=== PATIENT | male | born 1975 | race Caucasian/White ===

== ENCOUNTER 2017-02-27 14:03 | Emergency (ER) | payer MEDICAID ==
[~2017-02-27] VITALS: Ht 180.3 cm; Wt 77.1 kg
[~2017-02-27 14:03] MED LIST: ALLEGRA180 MG PO; AZITHROMYCIN250 MG PO; BACTRIM DS 8001 TAB PO; IBU-6600 MG PO; IBUPROFEN800 MG PO; KEFLEX 500MG.500 MG PO; MEDROL 4MG. DOSE4 MG PO; NOMEDS XX; PREDNISONE 20MG20 MG PO; TESSALON PERLE100 MG PO; ULTRACET 325 MG1 TAB PO; ZITHROMAX Z PA250 MG PO; ZITHROMAX Z-PA250 M2 PO
--- OUTSIDE RECORDS SUMMARY | 2017-02-27 14:09 | External Medical Summary Rpt ---
Author Author , NEO LARSON Address Unknown Phone [email or web address] Care Team Providers Care Import Export Agent Name Role Phone KHANG BARROS, KHANG Unavailable Unavailable FIORELLA BESSON RADHA, BESSON Unavailable Unavailable RADHA BESSON RADHA, BESSON Unavailable Unavailable RADHA MARSHALL, MARSHALL Unavailable Unavailable [facility], Unavailable [facility]available [facility], Unavailable [facility]available [facility] Unavailable Unavailable MARIE BRIAN, Unavailable Unavailable MARIE BRIAN MARIE BRIAN, Unavailable Unavailable MARIE BRIAN FRYMAN EUG, FRYMAN Unavailable Unavailable EUG JOSE SANDRA, JOSE Unavailable Unavailable SANDRA [facility] Unavailable Unavailable INC, [facility] Unavailable Unavailable HOSPITAL, [facility] Unavailable Unavailable [facility]PITAL P, [facility] Un[facility], [facility] LUIS ALBERTO JR, LUIS ALBERTO JR Unavailable Unavailable LUIS ALBERTO JR DWI, LUIS ALBERTO Unavailable Unavailable JR DWI [facility] Unavailable Unavailable SERVICES, [facility] Un[facility] Unavailable [facility], [facility], [facility] Unavailable Unavailable [id number] [address] 0393, [facility] [address] # 0393 SCIFRES, SCIFRES Unavailable Unavailable SCIFRES, SCIFRES Unavailable Unavailable SCIFRES ANG, SCIFRES Unavailable Unavailable ANG SCIFRES ANG, SCIFRES Unavailable Unavailable ANG SOKAN BAB, SOKAN BAB Unavailable Unavailable WEHRMAN III RYAN, Unavailable Unavailable WEHRMAN III RYAN AICHA TREVINO, AICHA TREVINO Unavailable Unavailable Purpose Continuity of Care Document - 09-04-2010 through 2016 Problems Code Diagnosis DOS Provider Status F42349 REGULAR 10-02-2016 SCIFRES ASTIGMATISM BILATERAL R079 CHEST PAIN 09-28-2016 [facility] Z681 BODY MASS 05-23-2016 DEPT FOR INDEX BMI PUBLIC HLTH 19 OR LESS ADULT Z4802 ENCOUNTER 07-26-2015 [facility] [id number] PAIN IN 07-15-2015 [place] [facility]NEE [facility] IM[facility] Q76669 PAIN IN 07-15-2015 [place]ICAL FOREARM IMAGING ASS [id number] CONTUSION 07-15-2015 [facility]ARYANN OTHER PART PHYSICIANS, OF HEAD PLL INITIAL ENCOUNTER A2163IK LACERATION 07-15-2015 [facility] W/O FB PHYSICIANS, OTHER PART [facility] HEAD INITIAL ENC R9955MD UNSPECIFIED 07-15-2015 [place] [facility]Y OF MEDICAL FACE IMAGING ASS INITIAL ENCOUNTER K9889GS CONTUSION 07-15-2015 MARYANN OF LEFT PHYSICIANS, FOREARM PLLC INITIAL ENCOUNTER [id number] CONTUSION 07-15-2015 MARYANN OF LEFT PHYSICIANS, KNEE PLL INITIAL ENCOUNTER Z720 TOBACCO USE 07-15-2015 [facility] 72190 CHEST PAIN 10-05-2014 [facility] 3829 UNSPECIFIED 09-28-2012 MARIE OTITIS BRIAN MEDIA 462 ACUTE 09-28-2012 MARIE PHARYNGITIS BRIAN 15056 UNSPECIFIED 09-21-2012 [facility] INFECTION INC IN CCE & UNS SITE 4618 OTHER ACUTE 09-21-2012 [facility] 4739 UNSPECIFIED 09-21-2012 [facility] V720 EXAMINATION 09-09-2012 SCIFRES ANG OF EYES AND VISION 4778 ALLERGIC 10-07-2011 MARIE RHINITIS BRIAN DUE TO OTHER ALLERGEN 65053 UNSPECIFIED 09-01-2011 BESSON RADHA INFECTIVE OTITIS EXTERNA 4720 CHRONIC 09-01-2011 BESSON RADHA RHINITIS 4779 ALLERGIC 09-01-2011 BESSON RADHA RHINITIS CAUSE UNSPECIFIED 79157 PAIN IN 10-09-2010 [place] [facility] ANKLE AND IMAGING ASS FOOT 55610 UNSPECIFIED 10-09-2010 [facility] ANKLE SERVICES SPRAIN AND STRAIN 4619 ACUTE 09-04-2010 [facility]ENC[facility] UNSPECIFIED SERVICES J40 BRONCHITIS, NOT SPECIFIED ACUTE OR CHRONIC R07.89 OTHER CHEST PAIN S00.83XA CONTUSION OF OTHER PART OF HEAD, INITIAL ENCOUNTER S01.81XA LACERATION W/O FOREIGN BODY OF OTH PART OF HEAD, INIT ENCNTR S50.12XA CONTUSION OF LEFT FOREARM, INITIAL ENCOUNTER S80.02XA CONTUSION OF LEFT KNEE, INITIAL ENCOUNTER Medications Na ND Rx Da Fi Fi Am Da Di Ph RX Ph St me C No te ll ll ou ys ag ar # ys at rm s nt no ma ic us Or Da si cy ia de te s n re d ID 59 02 03 10 5 00 RI Ac ED 74 -0 -1 .0 00 TE ti NI 60 7- 0- 00 01 ve SO 17 20 20 17 AI NE 50 17 17 00 D 6 62 PH 20 AR MA MG CY TA #3 BL 93 ET 8 BE 67 02 03 15 5 00 RI Ac NZ 87 -0 -1 .0 00 TE ti ON 70 7- 0- 00 01 ve AT 10 20 20 17 AI AT 50 17 17 00 D E 1 63 PH 10 AR 0 MA MG CY CA #3 PS 93 UL 8 E AZ 50 02 03 6. 5 00 RI Ac IT 11 -0 -1 00 00 TE ti HR 10 7- 0- 0 01 ve OM 78 20 20 17 AI YC 76 17 17 00 D IN 6 64 PH AR 25 MA 0 CY MG #3 TA 93 BL 8 ET AZ 00 01 01 6. 5 RI 86 WE Ac IT 78 -1 -1 00 TE 63 HR ti HR 11 3- 3- 0 37 MA ve OM 49 20 20 AI N YC 66 11 11 D II IN 8 PH I AR WI 25 MA LL 0 CY IA MG M 03 E TA 93 BL 8 ET # 03 93 Immunization Name Date Rout CVX Reac Dose Comm Prov Is Faci e tion ent ider Refu lity Give sed n TDAP 11-2 115 ROSALIND No ROSALIND 3-20 DAY DAY VACC 15 [facility] INE 7 HOSP HOSP YRS/ INC INC > IM Procedures Procedure DOS Code Location Performer Comment [facility] [address] [facility] 7 XM&EVAL COMPRHNSV ESTAB PT 1/> ECG 34073 MILLA SAHU JR ROUTINE 7 [facility] W/LEAST P 12 LDS I&R ONLY COMPREHEN 49532 MILLA LOYOLA SIVE 7 [facility] [place] [address] MILLA LOYOLA INFUSION 7 [facility] THERAPY/P INC INC ROPHYLAXI S /DX 1ST TO 1 HR THERAPEUT 74587 MILLA LOYOLA IC 7 [facility] INJECTION INC [place] [address] MILLA LOYOLA TROPONIN 7 [facility] QUANTITAT INC INC ANTIONE BLOOD 29337 MILLA LOYOLA COUNT 7 [facility] COMPLETE INC INC AUTO&AUTO DIFRNTL WBC RADIOLOGI 11398 TAYA Fu EXAM 7 MEDICAL CHEST 2 IMAGING VIEWS ASS FRONTAL&L ATERAL CREATINE 17208 MILLA LOYOLA KINASE 7 [facility] TOTAL INC INC ECG 82930 MILLA LOYOLA ROUTINE 7 [facility] ECG INC INC W/LEAST 12 LDS TRCG ONLY W/O I&R CREATINE 93505 MILLA LOYOLA KINASE MB 7 [facility] FRACTION INC INC ONLY RADEX 30281 TAYA QUIÑONEZ FACIAL 5 MEDICAL [facility] BONES IMAGING COMPLETE ASS MINIMUM 3 VIEWS RADEX 51434 TAYA QUIÑONEZ FOREARM 2 5 MEDICAL FIORELLA VIEWS IMAGING ASS SIMPLE 98539 MARYANN JOSE REPAIR 5 PHYSICIAN SANDRA F/E/E/N/L S, PLLC /M 2.5CM/< RADIOLOGI 52921 TAYA QUIÑONEZ C 5 MEDICAL FI[facility]LLA EXAMINATI IMAGING ON KNEE 3 ASS VIEWS IM ADM 97432 MILLA LOYOLA PRQ ID 5 [facility] SUBQ/IM INC INC NJXS 1 VACCINE TDAP 02531 MILLA LOYOLA VACCINE 7 5 [facility] YRS/> IM INC INC COMPREHEN 02002 MILLA LOYOLA SIVE 5 [facility] METABOLIC INC INC PANEL ECG 94253 MILLA SAHU JR ROUTINE 5 [facility] W/LEAST P 12 LDS I&R ONLY RHYTHM 19726 MILLA LOYOLA ECG 1-3 5 [facility] LEADS INC INC TRACING ONLY W/O I&R RADIOLOGI 01669 MILLA LYOOLA C 5 [facility] EXAMINATI INC INC ON CHEST [place] FRONTAL CREATINE 34896 MILLA LOYOLA KINASE 5 [facility] TOTAL INC INC BLOOD 72487 MILLA LOYOLA COUNT 5 [facility] COMPLETE INC INC AUTO&[place] [address] MILLA LOYOLA TROPONIN 5 [facility] QUANTITAT INC INC ANTIONE ECG 07252 MILLA MILLA ROUTINE 5 [facility] ECG INC INC W/LEAST 12 LDS TRCG ONLY W/O I&R CREATINE 65799 MILLA MILLA KINASE MB [address] [facility] [place] [address] MILLA WALKERON STREPTOCO [address] [facility] HOSP CCUS INC INC GROUP A CUL BACT 47547 MILLA WALKERON XCPT [address] [facility] URINE INC INC BLOOD/STO OL AEROBIC ISOL DETERMINA 33652 SCIFRES SCIFRES TION 3 ANG ANG REFRACTIV E STATE OPHTH 83555 SCIFRES SCIFRES MEDICAL 3 ANG ANG XM&EVAL COMPRHNSV ESTAB PT 1/> DETERMINA 42621 SCIFRES SCIFRES TION 2 ANG ANG REFRACTIV E STATE OPHTH 49174 SCIFRES SCIFRES MEDICAL 2 ANG ANG XM&EVAL COMPRHNSV ESTAB PT 1/> RADEX 32573 MILLA LOYOLA ANKLE [address] [facility] HOSP COMPLETE INC INC MINIMUM 3 VIEWS CRTCHS E0114 [facility] UNDARM 1 OTH THAN WOOD PAIR PAD TIP&HNDGR IP Encounters Encounter Start End Date Code Location Performer Type Date [facility] MILLA Llamas 7 7 [facility] EMERGENCY 63101 MILLA 7 7 [facility] T VISIT HIGH/URGE NT SEVERITY OFFICE 60070 MILLA BREWER OUTCLARISA [address] MINUTES EMERGENCY 19305 MARYANN GARCIA 5 5 PHYSICIAN [facility] T VISIT HIGH/URGE NT SEVERITY EMERGENCY 04445 MILLA 5 5 [facility] T VISIT MODERATE SEVERITY HOSPITAL MILLA - [address] [facility] MILLA - [address] [facility] EMERGENCY 76427 MILLA 5 5 [facility] DEPARTMEN INC T VISIT HIGH/URGE NT SEVERITY OFFICE 43925 MARIE MARIE DENISE 3 3 BRIAN BRIAN T VISIT 15 MINUTES HOSPITAL MILLA - 3 3 [facility] OUTPATIEN INC T EMERGENCY 18250 ZHANE TREVINO 3 3 EMERGENCY DEPARTMEN SERVICES T VISIT HIGH/URGE NT SEVERITY EMERGENCY 04242 MILLA 3 3 [facility] DEPARTMEN INC T VISIT LIMITED/M INOR PROB OFFICE 70992 MARIE MARIE OUTASHLEYEN 2 2 BRIAN BRIAN T VISIT 15 MINUTES OFFICE 39647 AMY REYES [facility] 2 2 RADHA RADHA T VISIT 15 MINUTES EMERGENCY 21824 MILLA 1 1 [facility] DEPARTMEN INC T VISIT LOW/MODER SEVERITY EMERGENCY 02445 ZHANE KAUR 1 1 EMERGENCY DEPARTMEN SERVICES T VISIT MODERATE SEVERITY HOSPITAL MILLA - 1 1 [facility] OUTPATIEN INC T EMERGENCY 58641 ZHANE BE 1 1 EMERGENCY III [facility] DEPARTMEN SERVICES T VISIT HIGH/URGE NT SEVERITY EMERGENCY 14582 MILLA 1 1 [facility] DEPARTMEN INC T VISIT LOW/MODER SEVERITY HOSPITAL MILLA - 1 1 [facility] OUTPATIEN INC T
--- OUTSIDE RECORDS SUMMARY | 2017-02-27 14:09 | External Medical Summary Rpt ---
Author Author , NEO LARSON Address Unknown Phone [email or web address] Care Team Providers Care Slab Off Mill Tender Name Role Phone KHANG BARROS, KHANG Unavailable [...] EUG JOSE SANDRA, JOSE Unavailable Unavailable SANDRA [facility] Unavailable Unavailable INC, [facility] Unavailable Unavailable HOSPITAL, [facility] Unavailable Unavailable HOSPITAL P, [facility] Unavailable Unavailable [facility]ING [facility], [facility] LUIS ALBERTO JR, LUIS ALBERTO JR Unavailable Unavailable LUIS ALBERTO JR DWI, LUIS ALBERTO Unavailable Unavailable JR DWI [facility] Unavailable Unavailable SERVICES, [facility], Unavailable Unavailable PLLC, [facility], [facility] Unavailable Unavailable [address] # 0393, [facility] [address] # 0393 SCIFRES, SCIFRES Unavailable Unavailable SCIFRES, SCIFRES Unavailable Unavailable SCIFRES ANG, SCIFRES Unavailable Unavailable ANG SCIFRES ANG, SCIFRES Unavailable Unavailable ANG SOKAN BAB, SOKAN BAB Unavailable Unavailable WEHRMAN III RYAN, Unavailable Unavailable WEHRMAN III RYAN AICHA TREVINO, AICHA TREVINO Unavailable Unavailable Purpose Continuity of Care Document - 09-04-2010 through 2016 Problems Code Diagnosis DOS Provider Status [id number] REGULAR 10-02-2016 SCIFRES ASTIGMATISM BILATERAL R079 CHEST PAIN 09-28-2016 [place] [facility] Z681 BODY MASS 05-23-2016 DEPT FOR INDEX BMI PUBLIC HLTH 19 OR LESS ADULT Z4802 ENCOUNTER 07-26-2015 [facility] A62392 PAIN IN 07-15-2015 [place] LEFT KNEE MEDICAL IMAGING ASS T01155 PAIN IN 07-15-2015 [place] LEFT MEDICAL FOREARM IMAGING ASS K7275ES CONTUSION 07-15-2015 MARYANN OTHER PART PHYSICIANS, OF HEAD PLL INITIAL ENCOUNTER F9047IS LACERATION 07-15-2015 MARYANN W/O FB PHYSICIANS, OTHER PART [facility] HEAD INITIAL ENC E5443IK UNSPECIFIED 07-15-2015 [place] INJURY OF MEDICAL FACE IMAGING ASS INITIAL ENCOUNTER R6329BL CONTUSION 07-15-2015 MARYANN OF LEFT PHYSICIANS, FOREARM PLLC INITIAL ENCOUNTER G9737LY CONTUSION 07-15-2015 MARYANN OF LEFT PHYSICIANS, KNEE PLL INITIAL ENCOUNTER Z720 TOBACCO USE 07-15-2015 [facility] 42095 CHEST PAIN 10-05-2014 [facility] P 3829 UNSPECIFIED 09-28-2012 MARIE OTITIS BRIAN MEDIA 462 ACUTE 09-28-2012 MARIE PHARYNGITIS BRIAN 04532 UNSPECIFIED 09-21-2012 [place] [facility] INFECTION INC IN CCE & UNS SITE 4618 OTHER ACUTE 09-21-2012 [facility] 4739 UNSPECIFIED 09-21-2012 [facility] V720 EXAMINATION 09-09-2012 SCIFRES ANG OF EYES AND VISION 4778 ALLERGIC 10-07-2011 MARIE RHINITIS BRIAN DUE TO OTHER ALLERGEN 42000 UNSPECIFIED 09-01-2011 BESSON RADHA INFECTIVE OTITIS EXTERNA 4720 CHRONIC 09-01-2011 [facility] RADHA RHINITIS 4779 ALLERGIC 09-01-2011 [facility] RADHA RHINITIS CAUSE UNSPECIFIED 75774 PAIN IN 10-09-2010 [place] JOINT, MEDICAL ANKLE AND IMAGING ASS FOOT 14971 UNSPECIFIED 10-09-2010 [facility] EMERGENC[facility] ANKLE SERVICES SPRAIN AND STRAIN 4619 ACUTE 09-04-2010 [facility], EMERGENCY UNSPECIFIED SERVICES J40 BRONCHITIS, NOT [...] ia de te s n re d VT 59 02 03 10 5 00 RI [...] Procedures Procedure DOS Code Location Performer Comment [facility] [address] [email or web address] 7 XM&EVAL COMPRHNSV ESTAB PT 1/> ECG 25323 MILLA SAHU JR ROUTINE 7 [facility] W/LEAST P 12 LDS I&R ONLY COMPREHEN 03021 MILLA LOYOLA SIVE 7 [facility] [place] [address] MILLA LOYOLA INFUSION 7 [facility] THERAPY/P INC INC ROPHYLAXI S /DX 1ST TO 1 HR THERAPEUT 98728 MILLA LOYOLA IC 7 [facility] INJECTION INC [place] [address] MILLA LOYOLA TROPONIN 7 [facility] QUANTITAT INC INC ANTIONE BLOOD 51821 MILLA LOYOLA COUNT 7 [facility] COMPLETE INC INC AUTO&AUTO DIFRNTL WBC RADIOLOGI 96889 TAYA Fu EXAM 7 MEDICAL CHEST 2 IMAGING VIEWS ASS FRONTAL&L ATERAL CREATINE 29850 MILLA LOYOLA KINASE 7 [facility] TOTAL INC INC ECG 63623 MILLA LOYOLA ROUTINE 7 [facility] ECG INC INC W/LEAST 12 LDS TRCG ONLY W/O I&R CREATINE 54434 MILLA LOYOLA KINASE MB 7 [facility] FRACTION INC INC ONLY RADEX 08977 TAYA QUIÑONEZ FACIAL 5 MEDICAL [facility] BONES IMAGING COMPLETE ASS MINIMUM 3 VIEWS RADEX 74917 TAYA QUIÑONEZ FOREARM 2 5 MEDICAL FI[facility] VIEWS IMAGING ASS SIMPLE 59706 MARYANN JOSE REPAIR 5 PHYSICIAN SANDRA F/E/E/N/L S, PLLC /M 2.5CM/< RADIOLOGI 68686 TAYA QUIÑONEZ C 5 MEDICAL [facility] EXAMINATI IMAGING ON KNEE 3 ASS VIEWS IM ADM 30160 MILLA LOYOLA PRQ ID 5 [facility] SUBQ/IM INC INC NJXS 1 VACCINE TDAP 46302 MILLA LOYOLA VACCINE 7 5 [facility] YRS/> IM INC INC COMPREHEN 29182 MILLA LOYOLA SIVE 5 [facility] METABOLIC INC INC PANEL ECG 20236 MILLA SAHU JR ROUTINE 5 [facility] W/LEAST P 12 LDS I&R ONLY RHYTHM 65005 MILLA LOYOLA ECG 1-3 5 [facility] LEADS INC INC TRACING ONLY W/O I&R RADIOLOGI 54821 MILLA LOYOLA C 5 [facility] EXAMINATI INC INC ON CHEST [place] FRONTAL CREATINE 39900 MILLA LOYOLA KINASE 5 [facility] TOTAL INC INC BLOOD 51887 MILLA LOYOLA COUNT 5 [facility] COMPLETE INC INC AUTO&[place] [address] MILLA LOYOLA TROPONIN 5 [facility] QUANTITAT INC INC ANTIONE ECG 40892 MILLA MILLA ROUTINE 5 [facility] ECG INC INC W/LEAST 12 LDS TRCG ONLY W/O I&R CREATINE 07559 MILLA MILLA KINASE MB 5 [facility] [place] [address] MILLA WALKERON STREPTOCO 3 [facility] CCUS INC INC GROUP A CUL BACT 45618 MILLA WALKERON XCPT 3 [facility] URINE INC INC BLOOD/STO OL AEROBIC ISOL DETERMINA 72691 SCIFRES SCIFRES TION 3 ANG ANG REFRACTIV E STATE OPHTH 84336 SCIFRES SCIFRES MEDICAL 3 ANG ANG XM&EVAL COMPRHNSV ESTAB PT 1/> DETERMINA 43527 SCIFRES SCIFRES TION 2 ANG ANG REFRACTIV E STATE OPHTH 65467 SCIFRES SCIFRES MEDICAL 2 ANG ANG XM&EVAL COMPRHNSV ESTAB PT 1/> RADEX 30226 MILLA LOYOLA ANKLE 1 [facility]OS[facility] COMPLETE INC INC MINIMUM 3 VIEWS CRTCHS E0114 [facility] UNDARM 1 OTH THAN WOOD PAIR PAD TIP&HNDGR IP Encounters Encounter Start End Date Code Location Performer Type Date [facility] MILLA Llamas 7 7 [facility] EMERGENCY 90333 MILLA 7 7 [facility] T VISIT HIGH/URGE NT SEVERITY OFFICE 90335 MILLA BREWER OUTCLARISA [address] MINUTES EMERGENCY [address] MARYANN GARCIA 5 5 PHYSICIAN [facility] T VISIT HIGH/URGE NT SEVERITY EMERGENCY 50955 MILLA 5 5 [facility] T VISIT MODERATE SEVERITY HOSPITAL MILLA - 5 5 [facility] MILLA - 5 5 [facility] EMERG[facility] 69541 MILLA 5 5 [facility] DEPARTMEN INC T VISIT HIGH/URGE NT SEVERITY OFFICE 84683 MARIE MARIE DENISE 3 3 BRIAN BRIAN T VISIT 15 MINUTES HOSPITAL MILLA - 3 3 [facility] OUTPATIEN INC T EMERGENCY 88279 ZHANE TREVINO 3 3 EMERGENCY DEPARTMEN SERVICES T VISIT HIGH/URGE NT SEVERITY EMERGENCY 95242 MILLA 3 3 [facility] DEPARTMEN INC T VISIT LIMITED/M INOR PROB OFFICE 24235 MARIE MARIE OUTASHLEYEN 2 2 BRIAN BRIAN T VISIT 15 MINUTES OFFICE 38978 AMY REYES [facility] 2 2 RADHA RADHA T VISIT 15 MINUTES EMERGENCY 68346 MILLA 1 1 [facility] DEPARTMEN INC T VISIT LOW/MODER SEVERITY EMERGENCY 88665 ZHANE KAUR 1 1 EMERGENCY DEPARTMEN SERVICES T VISIT MODERATE SEVERITY HOSPITAL MILLA - 1 1 [facility] OUTPATIEN INC T EMERGENCY 77843 ZHANE BE 1 1 EMERGENCY III RYAN DEPARTMEN SERVICES T VISIT HIGH/URGE NT SEVERITY EMERGENCY 70132 MILLA 1 1 [facility] DEPARTMEN INC T VISIT LOW/MODER SEVERITY HOSPITAL MILLA - 1 1 [facility] OUTPATIEN INC T
--- OUTSIDE RECORDS SUMMARY | 2017-02-27 14:10 | External Medical Summary Rpt ---
Author Author NEO Rosales, NEO Rosales Organization [employer] Address Unknown Phone Unavailable
--- OUTSIDE RECORDS SUMMARY | 2017-02-27 14:10 | External Medical Summary Rpt ---
Author Author , NEO Organization NEO Address Unknown Phone [email or web address] Care Team Providers Care Supervisor Mails Name Role Phone BESSON RADHA, BESSON Unavailable Unavailable RADHA BESSON RADHA, BESSON Unavailable Unavailable RADHA KEVIN NICOL, Unavailable Unavailable KEVIN NICOL [facility] Unavailable Unavailable [facility], Unavailable [facility]available [facility] Unavailable Unavailable MARIE BRIAN, Unavailable Unavailable MARIE BRIAN MARIE BRIAN, Unavailable Unavailable MARIE BRIAN FRYMAN EUG, FRYMAN Unavailable Unavailable EUG JOSE SANDRA, JOSE Unavailable Unavailable SANDRA [facility] Unavailable Unavailable INC, [facility] Unavailable Unavailable HOSPITAL, [facility] Unavailable Unavailable HOSPITAL P, [facility] Unavailable Unavailable IM[facility]ING [facility], [facility] LUIS ALBERTO JR, LUIS ALBERTO JR Unavailable Unavailable LUIS ALBERTO JR DWI, LUIS ALBERTO Unavailable Unavailable JR DWI [facility] Unavailable Unavailable SERVICES, [facility], Unavailable Unavailable PLL[facility], [facility] Unavailable Unavailable [id number] [address] [phone], [facility] [address] # [phone] SCIFRES, SCIFRES Unavailable Unavailable SCIFRES, SCIFRES Unavailable Unavailable SCIFRES ANG, SCIFRES Unavailable Unavailable ANG SCIFRES ANG, SCIFRES Unavailable Unavailable ANG SOKAN BAB, SOKAN BAB Unavailable Unavailable WEHRMAN III RYAN, Unavailable Unavailable WEHRMAN III RYAN AICHA RODRIGUEZ Unavailable Unavailable Purpose Continuity of Care Document - 09-04-2010 through 2016 Problems Code Diagnosis DOS Provider Status [id number] REGULAR 10-02-2016 SC[facility]RES ASTIGMATISM BILATERAL R079 CHEST PAIN 09-28-2016 [facility] Z681 BODY MASS 05-23-2016 DEPT FOR INDEX BMI PUBLIC HLTH 19 OR LESS ADULT Z4802 ENCOUNTER 07-26-2015 [facility] X86015 PAIN IN 07-15-2015 [facility] Q53476 PAIN IN 07-15-2015 [facility] [id number] CONTUSION 07-15-2015 [facility] OTHER PART PHYSICIANS, OF HEAD PLL INITIAL ENCOUNTER [id number] LACERATION 07-15-2015 [facility] W/O FB PHYSICIANS, OTHER PART [facility] HEAD INITIAL ENC [id number] UNSPECIFIED 07-15-2015 [place] IN[facility]Y [facility] MEDICAL FACE IMAGING ASS INITIAL ENCOUNTER [id number] CONTUSION 07-15-2015 [facility]ANN OF LEFT PHYSICIANS, FOREARM PLLC INITIAL ENCOUNTER [id number] CONTUSION 07-15-2015 MARYANN OF LEFT PHYSICIANS, KNEE PLL INITIAL ENCOUNTER Z720 TOBACCO USE 07-15-2015 [facility] 83706 CHEST PAIN 10-05-2014 [place] UNSPECIFIED [facility] P 3829 UNSPECIFIED 09-28-2012 MARIE OTITIS BRIAN MEDIA 462 ACUTE 09-28-2012 MARIE PHARYNGITIS BRIAN 14596 UNSPECIFIED 09-21-2012 [facility] INFECTION INC IN CCE & UNS SITE 4618 OTHER ACUTE 09-21-2012 [facility] 4739 UNSPECIFIED 09-21-2012 [facility] V720 EXAMINATION 09-09-2012 SCIFRES ANG OF EYES AND VISION 4778 ALLERGIC 10-07-2011 MARIE RHINITIS BRIAN DUE TO OTHER ALLERGEN 98813 UNSPECIFIED 09-01-2011 BESSON RADHA INFECTIVE OTITIS EXTERNA 4720 CHRONIC 09-01-2011 BESSON RADHA RHINITIS 4779 ALLERGIC 09-01-2011 BESSON RADHA RHINITIS CAUSE UNSPECIFIED 01091 PAIN IN 10-09-2010 [place] [facility]INT[facility] IMAGING [facility] FOOT 30316 UNSPECIFIED 10-09-2010 [facility] SPRAIN AND STRAIN 4619 ACUTE 09-04-2010 [facility] UNSPECIFIED SERVICES Medications Na ND Rx Da Fi Fi Am Da Di Ph RX Ph St me C No te ll ll ou ys ag ar # ys at rm s nt no ma ic us Or Da si cy ia de te s n re d [place] 59 02 03 10 5 00 RI [...] Procedure DOS Code Location Performer Comment [facility] [address] [facility] XM&EVAL COMPRHNSV ESTAB PT 1/> [place] [address] MILLA LOYOLA TROPONIN 7 [facility] QUANTITAT INC INC ANTIONE BLOOD 85668 MILLA LOYOLA COUNT 7 [facility] COMPLETE INC INC AUTO&[place] [address] MILLA LOYOLA INFUSION 7 [facility] THERAPY/P INC INC ROPHYLAXI S /DX 1ST TO 1 HR THERAPEUT 72120 M[facility]A LO[facility]OLA IC 7 [facility] INJECTION INC INC IV PUSH EACH NEW DRUG ECG 84607 MILLA SAHU JR ROUTINE 7 [facility] W/LEAST P 12 LDS I&R ONLY RADIOLOGI 26041 MILLA LOYOLA C EXAM 7 [facility] CHEST 2 INC INC VIEWS FRONTAL&L ATERAL COMPREHEN 57525 MILLA LOYOLA SIVE 7 [facility] METABOLIC INC INC PANEL CREATINE 76226 MILLA LOYOLA KINASE MB 7 [facility] FRACTION INC INC ONLY ECG 51695 M[facility]A LOYOLA ROUTINE 7 [facility] ECG INC INC W/LEAST 12 LDS TRCG ONLY W/O I&R CREATINE 57839 MILLA LOYOLA KINASE 7 [facility] TOTAL INC INC RADEX 15666 MILLA LOYOLA FACIAL 5 [facility] BONES INC INC COMPLETE MINIMUM 3 VIEWS RADEX 26826 MILLA LOYOLA FOREARM 2 5 [facility] VIEWS INC INC RADIOLOGI 74527 M[facility]A LO[facility]OLA C 5 [facility] EXAMINATI INC INC ON KNEE 3 VIEWS SIMPLE 41893 M[facility]A LOYOLA REPAIR 5 [facility] F/E/E/N/L INC INC /M 2.5CM/< IM ADM 23046 M[facility]A LO[facility]OLA PRQ ID 5 [facility] SUBQ/IM INC INC NJXS 1 VACCINE TDAP 51239 MILLA LOYOLA VACCINE 7 5 [facility] YRS/> IM INC INC BLOOD 86366 M[facility] LO[facility]OLA COUNT 5 [facility] COMPLETE INC INC AUTO&AUTO DIFRNTL WBC ECG 03002 MILLA SAHU JR ROUTINE 5 [facility] W/LEAST P 12 LDS I&[place] [address] MILLA LOYOLA TROPONIN 5 [facility] QUANTITAT INC INC ANTIONE RHYTHM 56046 MILLA LOYOLA ECG 1-3 5 [facility] LEADS INC INC TRACING ONLY W/O I&R RADIOLOGI 63829 M[facility]A LOYOLA C 5 [facility] EXAMINATI INC INC ON CHEST [place] FRONTAL CREATINE 30764 MILLA LOYOLA KINASE MB 5 [facility] FRACTION INC INC ONLY CREATINE 40298 MILLA LOYOLA KINASE 5 [facility] TOTAL INC INC COMPREHEN 75582 M[facility]A LOYOLA SIVE 5 [facility] METABOLIC INC INC PANEL ECG 84663 MILLA LOYOLA ROUTINE 5 [facility] ECG INC INC W/LEAST 12 LDS TRCG ONLY W/O I&[place] [address] MILLA LOYOLA STREPTOCO 3 [facility] CCUS INC INC GROUP A CUL BACT 13242 M[facility]A LOYOLA XCPT 3 [facility] URINE INC INC BLOOD/STO OL AEROBIC ISOL OPHTH 16693 SCIFRES SCIFRES MEDICAL 3 ANG ANG XM&EVAL COMPRHNSV ESTAB PT 1/> DETERMINA 91448 SCIFRES SCIFRES TION 3 ANG ANG REFRACTIV E STATE DETERMINA 78349 SCIFRES SCIFRES TION 2 ANG ANG REFRACTIV E STATE OPHTH 50203 SCIFRES SCIFRES MEDICAL 2 ANG ANG XM&EVAL COMPRHNSV ESTAB PT 1/> RADEX 96386 TAYA KEVIN ANKLE 1 MEDICAL NICOL COMPLETE IMAGING MINIMUM 3 ASS VIEWS CRTCHS E0114 [facility] UNDARM 1 OTH THAN WOOD PAIR PAD TIP&HNDGR IP Encounters Encounter Start End Date Code Location Performer Type Date [facility] MILLA Llamas 7 7 [facility] OUTPATIEN INC T EMERGENCY 69937 MILLA 7 7 [facility] DEPARTMEN INC T VISIT HIGH/URGE NT SEVERITY OFFICE 22101 MILLA DENISE [address] MINUTES EMERGENCY [address] MARYANN GARCIA 5 5 PHYSICIAN SANDRA DEPARTMEN S, [facility] T VISIT HIGH/URGE NT SEVERITY HOSPITAL MILLA - 5 5 [facility] OUTPATIEN INC T EMERGENCY 31747 [facility] 5 5 [facility] VISIT MODERATE SEVERITY HOSPITAL MILLA - 5 5 [facility] OUTPATIEN INC T EMERGENCY 43682 [facility] 5 5 [facility] VISIT HIGH/URGE NT SEVERITY OFFICE 60740 MARIE DENISE 3 3 [facility] T VISIT 15 MINUTES EMERGENCY 44464 ZHANE TREVINO 3 3 EMERGENCY DEPARTMEN SERVICES T VISIT HIGH/URGE NT SEVERITY EMERGENCY 24647 MILLA 3 3 [facility] DEPARTMEN INC T VISIT LIMITED/M [facility] MILLA - 3 3 [facility] OUTPATIEN INC T OFFICE 53988 MARIE SALAZAR OUTPATIEN 2 2 BRIAN BRIAN T VISIT 15 MINUTES OFFICE 94852 AMY REYES OUTPATIEN 2 2 RADHA RADHA T VISIT 15 MINUTES EMERGENCY 54463 MILLA 1 1 [facility] DEPARTMEN INC T VISIT LOW/MODER SEVERITY HOSPITAL MILLA - 1 1 [facility] OUTPATIEN INC T EMERGENCY 34382 ZHANE KAUR 1 1 EMERGENCY DEPARTMEN SERVICES T VISIT MODERATE SEVERITY HOSPITAL MILLA - 1 1 [facility] OUTPATIEN INC T EMERGENCY 71892 MILLA 1 1 [facility]ISIT LOW/MODER SEVERITY EMERGENCY 23851 ZHANE BE 1 1 EMERGENCY III RYAN DEPARTMEN SERVICES T VISIT HIGH/URGE NT SEVERITY
--- OUTSIDE RECORDS SUMMARY | 2017-02-27 14:10 | External Medical Summary Rpt ---
Author Author , NEO Organization NEO Address Unknown Phone [email or web address] Care Team Providers Care Vice President Integrated Name Role Phone BESSON RADHA, BESSON Unavailable [...] EUG JOSE SANDRA, JOSE Unavailable Unavailable SANDRA [facility] Unavailable Unavailable INC, [facility] Unavailable [facility]available HOSPITAL, [facility] Unavailable Unavailable HOSPITAL P, [facility] Unavailable Unavailable IMAGING ASS, [facility] LUIS ALBERTO JR, LUIS ALBERTO JR Unavailable Unavailable LUIS ALBERTO JR DWI, LUIS ALBERTO Unavailable Unavailable JR DWI [facility] Unavailable Unavailable SERVICES, [facility], Unavailable Unavailable PLL[facility], [facility] Unavailable Unavailable [phone] # 0393, [facility] [address] # 0393 SCIFRES, SCIFRES Unavailable Unavailable SCIFRES, SCIFRES Unavailable Unavailable SCIFRES ANG, SCIFRES Unavailable Unavailable ANG SCIFRES ANG, SCIFRES Unavailable Unavailable ANG SOKAN BAB, SOKAN BAB Unavailable Unavailable WEHRMAN III RYAN, Unavailable Unavailable WEHRMAN III RYAN AICHA RODRIGUEZ Unavailable Unavailable Purpose Continuity of Care Document - 09-04-2010 through 2016 Problems Code Diagnosis DOS Provider Status 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 10-02-2016 SC[facility] ASTIGMATISM BILATERAL R079 CHEST PAIN 09-28-2016 [place] [facility]PEC[facility]IED [facility] Z681 BODY MASS 05-23-2016 DEPT FOR INDEX BMI PUBLIC HLTH 19 OR LESS ADULT Z4802 ENCOUNTER 07-26-2015 [facility] R42192 PAIN IN 07-15-2015 [place] [facility] P88895 PAIN IN 07-15-2015 [place] LEFT [facility]ICAL FOREARM [facility] [id number] CONTUSION 07-15-2015 MARYANN OTHER PART PHYSICIANS, OF HEAD PLL INITIAL ENCOUNTER [id number] LACERATION 07-15-2015 MARYANN W/O FB PHYSICIANS, OTHER PART [facility] HEAD INITIAL ENC [id number] UNSPECIFIED 07-15-2015 [place] INJURY OF MEDICAL FACE IMAGING ASS INITIAL ENCOUNTER A4838UQ CONTUSION 07-15-2015 MARYANN OF LEFT PHYSICIANS, FOREARM PLLC INITIAL ENCOUNTER [id number] CONTUSION 07-15-2015 MARYANN OF LEFT PHYSICIANS, KNEE PLL INITIAL ENCOUNTER Z720 TOBACCO USE 07-15-2015 [facility] 03846 CHEST PAIN 10-05-2014 [place] UNSPECIFIED [facility] P 3829 UNSPECIFIED 09-28-2012 MARIE OTITIS BRIAN MEDIA 462 ACUTE 09-28-2012 MARIE PHARYNGITIS BRIAN 02908 UNSPECIFIED 09-21-2012 [facility] INFECTION INC IN CCE & UNS SITE 4618 OTHER ACUTE 09-21-2012 [facility] 4739 UNSPECIFIED 09-21-2012 [facility] V720 EXAMINATION 09-09-2012 SCIFRES ANG OF EYES AND VISION 4778 ALLERGIC 10-07-2011 MARIE RHINITIS BRIAN DUE TO OTHER ALLERGEN 92726 UNSPECIFIED 09-01-2011 BESSON RADHA INFECTIVE OTITIS EXTERNA 4720 CHRONIC 09-01-2011 BESSON RADHA RHINITIS 4779 ALLERGIC 09-01-2011 BESSON RADHA RHINITIS CAUSE UNSPECIFIED 87406 PAIN IN 10-09-2010 [place] JOINT, MEDICAL ANKLE AND IMAGING ASS FOOT 91562 UNSPECIFIED 10-09-2010 [facility] SPRAIN AND STRAIN 4619 ACUTE 09-04-2010 [facility] UNSPECIFIED SERVICES Medications Na ND Rx Da Fi Fi Am Da Di Ph RX Ph St me C No te ll ll ou ys ag ar # ys at rm s nt no ma ic us Or Da si cy ia de te s n re d [place] 59 02 03 10 5 00 RI [...] DOS Code Location Performer Comment [facility] [address] [facility] XM&EVAL COMPRHNSV ESTAB PT 1/> [place] [address] MILLA LOYOLA TROPONIN 7 [facility] QUANTITAT INC INC ANTIONE BLOOD 87163 MILLA LOYOLA COUNT 7 [facility] COMPLETE INC INC AUTO&[place] [address] MILLA LOYOLA INFUSION 7 [facility] THERAPY/P INC INC ROPHYLAXI S /DX 1ST TO 1 HR THERAPEUT 65211 MILLA LOYOLA IC 7 [facility] INJECTION INC INC IV PUSH EACH NEW DRUG ECG 26019 MILLA SAHU JR ROUTINE 7 [facility] W/LEAST P 12 LDS I&R ONLY RADIOLOGI 83834 MILLA LOYOLA C EXAM 7 [facility] CHEST 2 INC INC VIEWS FRONTAL&L ATERAL COMPREHEN 41861 MILLA LOYOLA SIVE 7 [facility] METABOLIC INC INC PANEL CREATINE 87691 MILLA LOYOLA KINASE MB 7 [facility] FRACTION INC INC ONLY ECG 52780 M[facility]A LOYOLA ROUTINE 7 [facility] ECG INC INC W/LEAST 12 LDS TRCG ONLY W/O I&R CREATINE 97867 M[facility]A LOYOLA KINASE 7 [facility] TOTAL INC INC RADEX 90088 M[facility]A LO[facility] FACIAL 5 [facility] BONES INC INC COMPLETE MINIMUM 3 VIEWS RADEX 79887 MILLA LOYOLA FOREARM 2 5 [facility] VIEWS INC INC RADIOLOGI 08083 M[facility]A LO[facility]OLA C 5 [facility] EXAMINATI INC INC ON KNEE 3 VIEWS SIMPLE 61983 MILLA LOYOLA REPAIR 5 [facility] F/E/E/N/L INC INC /M 2.5CM/< IM ADM 50263 MILLA LOYOLA PRQ ID 5 [facility] SUBQ/IM INC INC NJXS 1 VACCINE TDAP 89289 MILLA LOYOLA VACCINE 7 5 [facility] YRS/> IM INC INC BLOOD 41194 M[facility]A LOYOLA COUNT 5 [facility] COMPLETE INC INC AUTO&AUTO DIFRNTL WBC ECG 12095 MILLA SAHU JR ROUTINE [address] [facility] W/LEAST P 12 LDS I&[place] [address] MILLA LOYOLA TROPONIN 5 [facility] QUANTITAT INC INC ANTIONE RHYTHM 45165 MILLA LOYOLA ECG 1-3 5 [facility] LEADS INC INC TRACING ONLY W/O I&R RADIOLOGI 93394 MILLA LOYOLA C 5 [facility] EXAMINATI INC INC ON CHEST [place] FRONTAL CREATINE 36112 MILLA LOYOLA KINASE MB 5 [facility] FRACTION INC INC ONLY CREATINE 35953 MILLA LOYOLA KINASE 5 [facility] TOTAL INC INC COMPREHEN 95306 MILLA LOYOLA SIVE 5 [facility] METABOLIC INC INC PANEL ECG 90771 MILLA LOYOLA ROUTINE 5 [facility] ECG INC INC W/LEAST 12 LDS TRCG ONLY W/O I&[place] [address] MILLA LOYOLA STREPTOCO 3 [facility] CCUS INC INC GROUP A CUL BACT 47967 M[facility]A LOYOLA XCPT 3 [facility] URINE INC INC BLOOD/STO OL AEROBIC ISOL OPHTH 57373 SCIFRES SCIFRES MEDICAL 3 ANG ANG XM&EVAL COMPRHNSV ESTAB PT 1/> DETERMINA 94502 SCIFRES SCIFRES TION 3 ANG ANG REFRACTIV E STATE DETERMINA 52994 SCIFRES SCIFRES TION 2 ANG ANG REFRACTIV E STATE OPHTH 17587 SCIFRES SCIFRES MEDICAL 2 ANG ANG XM&EVAL COMPRHNSV ESTAB PT 1/> RADEX 85477 TAYA KEVIN ANKLE 1 MEDICAL NICOL COMPLETE IMAGING MINIMUM 3 ASS VIEWS CRTCHS E0114 [facility] UNDARM 1 OTH THAN WOOD PAIR PAD TIP&HNDGR IP Encounters Encounter Start End Date Code Location Performer Type Date [facility] MILLA Llamas 7 7 [facility] OUTPATIEN INC T EMERGENCY 42343 MILLA 7 7 [facility] DEPARTMEN INC T VISIT HIGH/URGE NT SEVERITY OFFICE 34052 MILLA DENISE [address] MINUTES EMERGENCY [address] MARYANN GARCIA 5 5 PHYSICIAN SANDRA DEPARTMEN S, [facility] T VISIT HIGH/URGE NT SEVERITY HOSPITAL MILLA - 5 5 [facility] OUTPATIEN INC T EMERGENCY 22495 [facility] MOD[facility] SEVERITY [facility] MILLA - 5 5 [facility] OUTPATIEN INC T EMERGENCY 94069 [facility] 5 [facility] HIGH/URGE NT SEVERITY OFFICE 09277 MARIE DENISE [address] [facility] T VISIT 15 MINUTES EMERGENCY 03599 ZHANE TREVINO 3 3 EMERGENCY DEPARTMEN SERVICES T VISIT HIGH/URGE NT SEVERITY EMERGENCY 35404 MILLA 3 3 [facility] DEPARTMEN INC T VISIT LIMITED/[facility] MILLA - 3 3 [facility] OUTPATIEN INC T OFFICE 13693 MARIE SALAZAR OUTPATIEN 2 2 BRIAN BRIAN T VISIT 15 MINUTES OFFICE 51062 AMY REYES OUTPATIEN 2 2 RADHA RADHA T VISIT 15 MINUTES EMERGENCY 23339 MILAL 1 1 [facility] DEPARTMEN INC T VISIT LOW/MODER SEVERITY HOSPITAL MILLA - 1 1 [facility] OUTPATIEN INC T EMERGENCY 92809 ZHANE KAUR 1 1 EMERGENCY DEPARTMEN SERVICES T VISIT MODERATE SEVERITY HOSPITAL MILLA - 1 1 [facility] OUTPATIEN INC T EMERGENCY 55087 MILLA 1 1 [facility] T VISIT LOW/MODER SEVERITY EMERGENCY 75516 ZHANE BE 1 1 EMERGENCY III RYAN DEPARTMEN SERVICES T VISIT HIGH/URGE NT SEVERITY
--- OUTSIDE RECORDS SUMMARY | 2017-02-27 14:10 | External Medical Summary Rpt ---
Demographics Preferred Language Mongolian Marital Status Unknown Rastafarian Affiliation Unknown Race Unknown Ethnic Group Unknown Author Author , GAVINO LARSON Address Unknown Phone Immunization Unable to retrieve immunization data due to connection failure with Immunization Registry. Please try again later.
--- OUTSIDE RECORDS SUMMARY | 2017-02-27 14:10 | External Medical Summary Rpt ---
Demographics Preferred Language Croatian Marital Status Unknown Yazdanism Affiliation Unknown Race Unknown Ethnic Group Unknown Author Author , GAVINO LARSON Address Unknown Phone Immunization Unable to retrieve immunization data due to connection failure with Immunization Registry. Please try again later.
--- NOTE | 2017-02-27 14:12 | Emergency Room Report ---
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 Clinical Suspician of Infection? Mental Status: Sepsis Risk: Have you (or family members/close friends) recently traveled outside the [place]? If Yes, where/when: Have you had exposure to infectious disease within the past month? TB? Other? Specify: Source patient, RN notes reviewed Exam Limitations no limitations Comment Head congestion and ear pain. Has been seen in [facility] in past but thinks it is his sinuses Cardiac Chest Pain Chest pain indicative of cardiac No ALLERGIES Coded Allergies: acetaminophen (Mild, 09/28/16) codeine (Mild, 09/28/16) hydrocodone (Mild, 09/28/16) oxycodone (Mild, 09/28/16) penicillin G (Mild, 09/28/16) Home Medications Reported Medications No Known Home Medications History Medical History General CAD? No Angina: No PA: No Hypertension? No Hyperlipidemia? No CHF? No DVT? No PE? No COPD? No Asthma? No Anemia? No GERD? No Gastric ulcers? No GI Bleed? No Hernia? No Thyroid Problems? No Hypothyroidism? No CVA? No Seizures? No Diabetes? No Renal Insuffiency? No End Stage Renal Disease? No UTI? No Stones? No BPH? No GB Disease: No Nephritic Syndrome? No Asplenia? No Hepatitis? No Sickle Cell Disease? No Arthritis? No Migraines? No Cataracts? No Glaucoma? No MRSA? No HIV? No TB? No Anxiety? No Depression? No Cancer? Yes Site: MVP More? Yes Additional hx: MVP Immunization Hx DT/Tetanus 5-10 Years Ago Surgical Hx Previous Surgery?Y APPENDECTOMY ORAL SURGERY RIGHT KNEE ANKLE SURGERY- LEFT TEETH EXTRACTION Family History Family Hx Diabetes Yes CAD Yes Hypertension Yes Hyperlipidemia No Cancer Yes TB No Social History Smoking Hx Packs/day < 1 Pack Alcohol Alcohol: Yes Review of Systems All Other Systems Reviewed and Negative Constitutional see HPI ENT see HPI. Physical Exam Vital Signs Vital Signs Date Time Temp Pulse Resp B/P Pulse O2 O2 Flow FiO2 Ox Delivery Rate 02/27 1406 98.2 98 18 153/95 95 General Appearance normal appearance, WD/WN, no apparent distress Ear, Nose, Throat hearing grossly normal, nasal congestion Respiratory Status No: respiratory distress. 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 No Departure Departure Time of Disposition 1425 Disposition DC Home or Self Care(routine) Clinical Impression Primary Impression: Acute maxillary sinusitis Qualifiers: Recurrence: not specified as recurrent Qualified Code: J01.00 - Acute maxillary sinusitis, unspecified Condition STABLE Referrals Sam Ontiveros MD (PCP): 3 Days-Call Office Patient Instructions DI for Sinusitis, Sinusitis (Alternative Therapy) Additional Instructions Use medicine as directed and use salt water sniffles 3 to 4 times a day. Return to [facility] or followup with PCP as needed. Discharge Counseling Counseled pt/family regarding diagnosis, test results, medications/RX, home care, follow up needs Prescriptions Current Visit Scripts SULFAMETHOXAZOLE W/TRIMETHOPRI (Bactrim Ds Tab) 1 TABLET PO BID #28 TAB Guaifenesin (Mucinex) 600 MG PO BID #28 TAB ED Critical Care Critical Care No If Critical Care minutes are documented, the time involved in the performance of seperately reportable procedures was not counted toward critical care time documented. I directly delivered medical care to this critically ill and/or injured patient. Timely evaluation and treatment was necessary to address the significant organ system(s) dysfunction present in this patient. at 1427
--- NOTE | 2017-02-27 14:12 | Emergency Room Report ---
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 Clinical Suspician of Infection? Mental Status: Sepsis Risk: Have you (or family members/close friends) recently traveled outside the [place]? If Yes, where/when: Have you had exposure to infectious disease within the past month? TB? Other? Specify: Source patient, RN notes reviewed Exam Limitations no limitations Comment Head congestion and ear pain. Has been seen in [facility] in past but thinks it is his sinuses Cardiac Chest Pain Chest pain indicative of cardiac No ALLERGIES Coded Allergies: acetaminophen (Mild, 09/28/16) codeine (Mild, 09/28/16) hydrocodone (Mild, 09/28/16) oxycodone (Mild, 09/28/16) penicillin G (Mild, 09/28/16) Home Medications Reported Medications No Known Home Medications History Medical History General CAD? No Angina: No IA: No Hypertension? No Hyperlipidemia? No CHF? No DVT? No PE? No COPD? No Asthma? No Anemia? No GERD? No Gastric ulcers? No GI Bleed? No Hernia? No Thyroid Problems? No Hypothyroidism? No CVA? No Seizures? No Diabetes? No Renal Insuffiency? No End Stage Renal Disease? No UTI? No Stones? No BPH? No GB Disease: No Nephritic Syndrome? No Asplenia? No Hepatitis? No Sickle Cell Disease? No Arthritis? No Migraines? No Cataracts? No Glaucoma? No MRSA? No HIV? No TB? No Anxiety? No Depression? No Cancer? Yes Site: MVP More? Yes Additional hx: MVP Immunization Hx DT/Tetanus 5-10 Years Ago Surgical Hx Previous Surgery?Y APPENDECTOMY ORAL SURGERY RIGHT KNEE ANKLE SURGERY- LEFT TEETH EXTRACTION Family History Family Hx Diabetes Yes CAD Yes Hypertension Yes Hyperlipidemia No Cancer Yes TB No Social History Smoking Hx Packs/day < 1 Pack Alcohol Alcohol: Yes Review of Systems All Other Systems Reviewed and Negative Constitutional see HPI ENT see HPI. Physical Exam Vital Signs Vital Signs Date Time Temp Pulse Resp B/P Pulse O2 O2 Flow FiO2 Ox Delivery Rate 02/27 1406 98.2 98 18 153/95 95 General Appearance normal appearance, WD/WN, no apparent distress Ear, Nose, Throat hearing grossly normal, nasal congestion Respiratory Status No: respiratory distress. 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 No Departure Departure Time of Disposition 1425 Disposition DC Home or Self Care(routine) Clinical Impression Primary Impression: Acute maxillary sinusitis Qualifiers: Recurrence: not specified as recurrent Qualified Code: J01.00 - Acute maxillary sinusitis, unspecified Condition STABLE Referrals Sam Ontiveros MD (PCP): 3 Days-Call Office Patient Instructions DI for Sinusitis, Sinusitis (Alternative Therapy) Additional Instructions Use medicine as directed and use salt water sniffles 3 to 4 times a day. Return to [facility] or followup with PCP as needed. Discharge Counseling Counseled pt/family regarding diagnosis, test results, medications/RX, home care, follow up needs Prescriptions Current Visit Scripts SULFAMETHOXAZOLE W/TRIMETHOPRI (Bactrim Ds Tab) 1 TABLET PO BID #28 TAB Guaifenesin (Mucinex) 600 MG PO BID #28 TAB ED Critical Care Critical Care No If Critical Care minutes are documented, the time involved in the performance of seperately reportable procedures was not counted toward critical care time documented. I directly delivered medical care to this critically ill and/or injured patient. Timely evaluation and treatment was necessary to address the significant organ system(s) dysfunction present in this patient. at 1422
[2017-02-27] MEDS ORDERED: BACTRIM DS 8001 TA1 PO (14:28)
[2017-02-27] MEDS ORDERED: MUCINEX ER600 MG PO (14:28)
[2017-02-27 14:34] VITALS: BP 153/95
== END 2017-02-27 14:34 | disposition home or self-care (01) ==
LOC: ER 14:03
DX: J01.00 Acute maxillary sinusitis, unspecified (principal)